=== PATIENT | female | born 1980 | race Hispanic/Latino ===

== ENCOUNTER 2020-09-12 14:06 | Outpatient (CLI) | payer MEDICARE | END 2020-09-12 14:07 | disposition home or self-care (01) | LOC: CSHULT 14:06 | PROVIDERS: ATTEND Family Medicine | DX: I82.621 Acute embolism and thrombosis of deep veins of right upper extremity (principal) ==

== ENCOUNTER 2022-06-17 09:28 | Outpatient (CLI) | payer OTHER | END 2022-06-17 09:29 | disposition home or self-care (01) | LOC: CSHMRI 09:28 | PROVIDERS: ATTEND Specialist | DX: M51.16 Intervertebral disc disorders with radiculopathy, lumbar region (principal); M51.27 Other intervertebral disc displacement, lumbosacral region; M51.36 Other intervertebral disc degeneration, lumbar region; R19.03 Right lower quadrant abdominal swelling, mass and lump | CPT/HCPCS: 72148 ==